=== PATIENT | female | born 1975 | race Caucasian/White ===

== ENCOUNTER 2020-01-09 17:11 | Emergency (ER) | payer MEDICAID ==
[~2020-01-09] VITALS: Ht 157.5 cm; Wt 99.8 kg
[2020-01-09 21:51] LABS: Basophils # (auto) 0 10 ^3/uL (0-0.2); Basophils % (auto) 0.6 % (0.0-2.0); Eosinophils # (auto) 0 10 ^3/uL (0-0.8); Eosinophils % (auto) 0.2 % (0.0-7.0); Hematocrit 44.9 % (36.0-46.0); Hemoglobin 15.5 g/dL (12.2-16.2); Lymphocytes # (auto) 0.7 10 ^3/uL (0.4-5.4); Lymphocytes % (auto) 12.8 % (10.0-50.0); Mean Corpuscular Hemoglobin 32.1 pg (28.0-32.0); Mean Corpuscular Hgb Conc. 34.5 g/dL (32.0-36.0); Monocytes # (auto) 0.6 10 ^3/uL (0-1.3); Monocytes % (auto) 10.9 % (0.0-12.0); Neutrophils # (auto) 4.2 10 ^3/uL (1.6-8.6); Neutrophils % (auto) 75.5 % (37.0-80.0); Nucleated Red Blood Cells % 0.1 %; Platelet Count (auto) 212 10^3/uL (140-450); Red Blood Cells 4.82 10^6/uL (4.0-5.20); Red Cell Distribution Width 13.3 % (11.8-14.3); White Blood Cell 5.6 10^3/uL (4.4-10.8)
[2020-01-09 22:10] LABS: BUN/Creatinine Ratio 14.4; Calcium 7.5 mg/dL (8.5-10.1); Potassium 3.7 mmol/L (3.5-5.1)
[2020-01-09 22:12] LABS: Bilirubin, Total 0.6 mg/dL (0.2-1.0); Total Protein 4.1 g/dL (6.4-8.2)
[2020-01-09 22:24] LABS: Albumin 0.8 g/dL (3.4-5.0)
[2020-01-09 23:55] VITALS: BP 112/78
--- NOTE | 2020-01-10 03:50 | NUR ---
PATIENT WAS NOTIFIED OF HER COVID RESULTS
== END 2020-01-09 23:55 | disposition home or self-care (01) ==
LOC: ER 17:11
DX: U07.1 COVID-19 (principal); J01.00 Acute maxillary sinusitis, unspecified
CPT/HCPCS: 36415; 71045; 80053; 82728; 85025; 87070; 87804; 87880; 99284; C9803; U0003